=== PATIENT | male | born 1950 | race Caucasian/White ===

== ENCOUNTER 2023-05-08 07:48 | Day surgery (SDC) | payer OTHER ==
[~2023-05-08] VITALS: Ht 170.2 cm; Wt 138.8 kg
[2023-05-08] VITALS (12 sets, daily range): BP systolic 93–153; BP diastolic 52–92; PULSE 60–72; RESP 12–18
[~2023-05-08 07:48] MED LIST: 0.9%NACL 1000ML 1,000 ML IV ONE; ATOR-2 PO; CARB-38 PO; DONE10TA43 PO; FAMO20TA8 PO; INSU300I SQ; LISI5TAB21 PO; MEMA10TA55 PO; METO25TA6 PO; OMEG-116 PO; PRAZ2CAP2 PO; ROTI1PAT11 TD; SEMA0.5P SQ; TAMS-1 PO; VENL-63 PO
[2023-05-08] MEDS ORDERED: PROPOFOL 10 MG/ML 20ML VIAL IV ONE (09:46)
== END 2023-05-08 14:08 | disposition home or self-care (01) ==
LOC: ENDO 07:48 → DAH 07:48 → ENDO 14:08
PROVIDERS: ATTEND Internal Medicine Gastroenterology
DX: Z12.11 Encounter for screening for malignant neoplasm of colon (principal); R13.10 Dysphagia, unspecified; D12.3 Benign neoplasm of transverse colon; K29.50 Unspecified chronic gastritis without bleeding; K44.9 Diaphragmatic hernia without obstruction or gangrene; K20.90 Esophagitis, unspecified without bleeding; R12 Heartburn; K59.04 Chronic idiopathic constipation; I10 Essential (primary) hypertension; E11.8 Type 2 diabetes mellitus with unspecified complications; F41.9 Anxiety disorder, unspecified; F32.A Depression, unspecified; E66.9 Obesity, unspecified; M17.9 Osteoarthritis of knee, unspecified; G20.A1 Parkinson's disease without dyskinesia, without mention of fluctuations; M19.90 Unspecified osteoarthritis, unspecified site; E78.5 Hyperlipidemia, unspecified; Z86.010 Personal history of colon polyps; Z79.899 Other long term (current) drug therapy; Z98.890 Other specified postprocedural states; Z90.49 Acquired absence of other specified parts of digestive tract; Z98.41 Cataract extraction status, right eye; Z98.42 Cataract extraction status, left eye; Z79.4 Long term (current) use of insulin; Z68.42 Body mass index [BMI] 45.0-49.9, adult
CPT/HCPCS: 82948 ×2; 43239; 45385; J7030 ×2; J2704; A4620; A4215 ×2; A4223; A7002; A4222; A4221; A4663; A4606; J3490